=== PATIENT | male | born 1940 | race Hispanic/Latino ===

== ENCOUNTER 2018-05-23 10:19 | Emergency (ER) | payer OTHER, MEDICARE ==
[2018-05-23 11:23] LABS: BASOPHILS % (AUTO) 0.7 % (0.0-5.0); EOSINOPHILS % (AUTO) 3.6 % (0.0-8.0); LYMPHOCYTES % (AUTO) 23.5 % (21.0-51.0); MEAN CORPUSCULAR HEMOGLOBIN 31.3 pg (27.0-33.0); MEAN CORPUSCULAR HGB CONC 33.8 g/dL (32.0-36.0); MEAN CORPUSCULAR VOLUME 92.7 fL (79-99); MONOCYTES % (AUTO) 9.3 % (3.0-13.0); NEUTROPHILS % (AUTO) 62.9 % (40.0-77.0); NUCLEATED RED BLOOD CELLS 0.1 % (0.0-0.19); PLATELET COUNT (AUTO) 221 K/uL (130-400); RED BLOOD CELL COUNT(AUTO) 4.53 MIL/uL (4.50-6.20); RED CELL DISTRIBUTION WIDTH 13.1 % (11.0-15.5); WHITE BLOOD COUNT (AUTO) 5.9 K/uL (4.8-10.8)
[2018-05-23 11:24] LABS: CREATININE 0.7 mg/dL (0.5-1.5); POTASSIUM 3.7 mmol/L (3.5-5.1)
[2018-05-23 11:29] LABS: ALBUMIN 3.5 g/dL (3.5-5.0); BILIRUBIN,TOTAL 0.6 mg/dL (0.2-1.0); TOTAL PROTEIN, SERUM 6.9 g/dL (6.0-8.3)
[2018-05-23 12:02] LABS: INR 0.95 (0.85-1.15); PARTIAL THROMBOPLASTIN TIME 30.2 SEC (26.3-35.5)
== END 2018-05-23 12:36 | disposition home or self-care (01) ==
LOC: EDH 10:19
DX: I10 Essential (primary) hypertension (principal); R42 Dizziness and giddiness; R53.1 Weakness; Z90.49 Acquired absence of other specified parts of digestive tract; Z88.0 Allergy status to penicillin
CPT/HCPCS: 36415; 80053; 84484; 85025; 85610; 85730; 93005

== ENCOUNTER 2018-06-01 19:37 | Emergency (ER) | payer OTHER, MEDICARE ==
[2018-06-01] MEDS ORDERED: ONDANSETRON HCL 4 MG/2 ML VIAL ONE (20:50)
[2018-06-01] MEDS ORDERED: 0.9% SODIUM CHLORIDE 1000 ML IV BAG IV ONE (21:11)
[2018-06-01 21:43] LABS: CREATININE 0.6 mg/dL (0.5-1.5); POTASSIUM 4.5 mmol/L (3.5-5.1)
== END 2018-06-01 23:18 | disposition home or self-care (01) ==
LOC: EDH 19:37
DX: I10 Essential (primary) hypertension (principal); R11.2 Nausea with vomiting, unspecified; Z90.49 Acquired absence of other specified parts of digestive tract; Z88.0 Allergy status to penicillin
CPT/HCPCS: 36415; 70450; 80048; 84484; 93005; 96361; 96374; 99284; J2405; J7030

== ENCOUNTER → 2018-08-17 | Outpatient (CLI) | payer OTHER, MEDICARE ==
[2018-08-17 12:29] LABS: EOSINOPHILS % (AUTO) 2.6 % (0.0-8.0); HEMATOCRIT 44.6 % (42-54); LYMPHOCYTES % (AUTO) 26.4 % (21.0-51.0); MEAN CORPUSCULAR HEMOGLOBIN 30.9 pg (27.0-33.0); MEAN CORPUSCULAR HGB CONC 33.1 g/dL (32.0-36.0); MEAN CORPUSCULAR VOLUME 93.2 fL (79-99); PLATELET COUNT (AUTO) 249 K/uL (130-400); RED BLOOD CELL COUNT(AUTO) 4.79 MIL/uL (4.50-6.20); RED CELL DISTRIBUTION WIDTH 13.4 % (11.0-15.5)
[2018-08-17 12:55] LABS: CREATININE 0.8 mg/dL (0.5-1.5); POTASSIUM 3.5 mmol/L (3.5-5.1)
== END | disposition home or self-care (01) ==
LOC: LAB 12:10
PROVIDERS: ATTEND Internal Medicine Gastroenterology
DX: R93.2 Abnormal findings on diagnostic imaging of liver and biliary tract (principal)
CPT/HCPCS: 36415; 80048; 85025

== ENCOUNTER → 2018-08-18 | Outpatient (CLI) | payer OTHER, MEDICARE ==
[~2018-08-18] MED LIST: GADODIAMIDE 10 MMOL/20 ML VIAL IV ONE
== END | disposition home or self-care (01) ==
LOC: RAH 07:11
PROVIDERS: ATTEND Internal Medicine Gastroenterology
DX: N28.1 Cyst of kidney, acquired (principal)
CPT/HCPCS: 74183; A9579

== ENCOUNTER 2018-09-03 10:00 | Day surgery (SDC) | payer OTHER, MEDICARE ==
[~2018-09-03] VITALS: Ht 157.5 cm; Wt 80.3 kg
[2018-09-03] VITALS (20 sets, daily range): BP systolic 112–168; BP diastolic 50–90
[~2018-09-03 10:00] MED LIST changes: +CLON0.1T PO; +DULO40CA2 PO; -GADODIAMIDE 10 MMOL/20 ML VIAL IV ONE; +HYDR12.530 PO; +MAGN100T5 PO; +METO-391 PO; +RANI-643 PO; +SODIUM CHLORIDE 0.9% 1000ML 1,000 ML IV ONE
[2018-09-03] MEDS ORDERED: IOHEXOL-350 50ML VIAL IV ONE (12:22)
[2018-09-03] MEDS ORDERED: RANI150C4 PO (12:28)
[2018-09-03] MEDS ORDERED: DULO30CA52 PO (12:28)
[2018-09-03] MEDS ORDERED: CLON1PAT13 TD (12:28)
[2018-09-03] MEDS ORDERED: HYDR25TA PO (12:28)
[2018-09-03] MEDS ORDERED: DONE5TAB26 PO (12:30)
[2018-09-03] MEDS ORDERED: INDOMETHACIN 50 MG SUPP.RECT RC SCH (12:30)
[2018-09-03] MEDS ORDERED: PROPOFOL 1000 MG/100 ML 100 ML IV ONE (12:49)
[2018-09-03] MEDS ORDERED: LIDOCAINE HCL 2% 20ML ONE (12:49)
[2018-09-03] MEDS ORDERED: SUCCINYLCHOLINE CHLORIDE 20 MG/ML 10 ML VIAL ONE (12:49)
[2018-09-03] MEDS ORDERED: HYDRALAZINE HCL 20 MG/ML VIAL ONE (13:10)
[2018-09-03] MEDS ORDERED: GLUCAGON 1MG KIT 1 MG ML ONE (13:21)
--- NOTE | 2018-09-03 15:15 | NUR ---
REVIEWED DR. HEATH INSTRUCTIONS WITH PATIENT DAUGHTER, SHE VERBALIZED UNDERSTANDING AND AGREED TO COMPLY. PATIENT IN NO DISTRESS OR DISCOMFORT.
--- NOTE | 2018-09-03 15:30 | NUR ---
PATIENT ASSISTED TO SIT UP ON SIDE OF BED AND TO CHAIR. PATIENT STATES FEELING WELL IN NO DISTRESS.
--- NOTE | 2018-09-03 15:44 | NUR ---
PATIENT LEFT HOME IN NO DISTRESS. AAOX3
== END 2018-09-03 15:44 | disposition home or self-care (01) ==
LOC: ENDO 10:00 → DAH 10:00 → ENDO 15:44
PROVIDERS: ATTEND Internal Medicine
DX: K31.89 Other diseases of stomach and duodenum (principal); K83.9 Disease of biliary tract, unspecified; I10 Essential (primary) hypertension; F41.9 Anxiety disorder, unspecified; F32.9 Major depressive disorder, single episode, unspecified; J45.909 Unspecified asthma, uncomplicated; Z79.899 Other long term (current) drug therapy; Z98.890 Other specified postprocedural states; Z88.0 Allergy status to penicillin; Z90.49 Acquired absence of other specified parts of digestive tract; Z82.49 Family history of ischemic heart disease and other diseases of the circulatory system; Z82.3 Family history of stroke; Z83.3 Family history of diabetes mellitus
CPT/HCPCS: 43260; A4606; C1769; J0330; J0360; J1610; J2704; J3490; J7030; Q9967; 43235; 74330

== ENCOUNTER 2018-11-16 05:30 | Day surgery (SDC) | payer OTHER, MEDICARE ==
[~2018-11-16] VITALS: Ht 160 cm; Wt 78.5 kg
[~2018-11-16 05:30] MED LIST changes: -CLON0.1T PO; +CLON1PAT13 TD; +DONE5TAB26 PO; +DULO30CA52 PO; -DULO40CA2 PO; -HYDR12.530 PO; +HYDR25TA PO; -RANI-643 PO; +RANI150C4 PO; -SODIUM CHLORIDE 0.9% 1000ML 1,000 ML IV ONE
[2018-11-16] MEDS ORDERED: SODIUM CHLORIDE 0.9% 1000ML 1,000 ML IV ONE (05:44)
[2018-11-16 06:03] VITALS: BP 174/69
[2018-11-16 06:17] LABS: BASOPHILS % (AUTO) 0.8 % (0.0-5.0); EOSINOPHILS % (AUTO) 3.4 % (0.0-8.0); HEMATOCRIT 41.5 % (42-54); LYMPHOCYTES % (AUTO) 33.7 % (21.0-51.0); MEAN CORPUSCULAR HEMOGLOBIN 32.2 pg (27.0-33.0); MEAN CORPUSCULAR HGB CONC 34.5 g/dL (32.0-36.0); MEAN CORPUSCULAR VOLUME 93.4 fL (79-99); MONOCYTES % (AUTO) 10.6 % (3.0-13.0); NEUTROPHILS % (AUTO) 51.5 % (40.0-77.0); PLATELET COUNT (AUTO) 231 K/uL (130-400); RED BLOOD CELL COUNT(AUTO) 4.44 MIL/uL (4.50-6.20); RED CELL DISTRIBUTION WIDTH 12.9 % (11.0-15.5); WHITE BLOOD COUNT (AUTO) 6.1 K/uL (4.8-10.8)
[2018-11-16 06:30] LABS: INR 0.95 (0.85-1.15)
[2018-11-16] MEDS ORDERED: PROPOFOL 10 MG/ML 20ML VIAL IV ONE (07:40)
[2018-11-16] MEDS ORDERED: LIDOCAINE HCL 2% 20ML ONE (07:40)
[2018-11-16 07:55] VITALS: BP 111/43
[2018-11-16 08:02] VITALS: BP 103/44
[2018-11-16 08:07] VITALS: BP 131/56
[2018-11-16 08:12] VITALS: BP 145/89
[2018-11-16 08:17] VITALS: BP 147/67
== END 2018-11-16 08:33 | disposition home or self-care (01) ==
LOC: DAH 05:30 → ENDO 05:30
PROVIDERS: ATTEND Internal Medicine
DX: K83.8 Other specified diseases of biliary tract (principal); K86.9 Disease of pancreas, unspecified; F41.9 Anxiety disorder, unspecified; F32.9 Major depressive disorder, single episode, unspecified; I10 Essential (primary) hypertension; J45.909 Unspecified asthma, uncomplicated; Z79.899 Other long term (current) drug therapy; Z86.010 Personal history of colon polyps; Z88.0 Allergy status to penicillin; Z82.49 Family history of ischemic heart disease and other diseases of the circulatory system; Z83.3 Family history of diabetes mellitus; Z82.5 Family history of asthma and other chronic lower respiratory diseases
CPT/HCPCS: 36415; 43237; 85025; 85610; A4606; J2704; J3490; J7030

== ENCOUNTER 2022-07-31 15:29 | Emergency (ER) | payer OTHER, MEDICARE ==
[~2022-07-31] VITALS: Ht 152.4 cm; Wt 79.4 kg
[~2022-07-31 15:29] MED LIST changes: -DONE5TAB26 PO
[2022-07-31 16:31] VITALS: BP 185/82
[2022-07-31] MEDS ORDERED: NAPR500T6 PO (20:00)
[2022-07-31] MEDS ORDERED: CLIN-141 PO (20:00)
[2022-08-19] MEDS ORDERED: SERT-438 PO (23:50)
[2022-08-19] MEDS ORDERED: FURO20TA4 PO (23:50)
[2022-08-19] MEDS ORDERED: ATOR10TA69 PO (23:50)
[2022-08-19] MEDS ORDERED: APIX5TAB PO (23:50)
[2022-08-19] MEDS ORDERED: CLON1PAT4 TD (23:50)
[2022-08-19] MEDS ORDERED: DONE5TAB33 PO (23:50)
[2022-08-19] MEDS ORDERED: QUET25TA36 PO (23:50)
[2022-08-19] MEDS ORDERED: HYDR12.54 PO (23:50)
[2022-08-19] MEDS ORDERED: MEMA5TAB42 PO (23:50)
== END 2022-07-31 20:34 | disposition home or self-care (01) ==
LOC: EDSEX 15:29 → EDH 15:29
DX: M25.531 Pain in right wrist (principal); M79.89 Other specified soft tissue disorders; M19.90 Unspecified osteoarthritis, unspecified site; I48.91 Unspecified atrial fibrillation; F03.90 Unspecified dementia, unspecified severity, without behavioral disturbance, psychotic disturbance, mood disturbance, and anxiety; I10 Essential (primary) hypertension; R60.0 Localized edema; Z90.49 Acquired absence of other specified parts of digestive tract; Z88.0 Allergy status to penicillin; Z79.899 Other long term (current) drug therapy
CPT/HCPCS: 73100; 93971

== ENCOUNTER → 2024-09-21 | Outpatient (CLI) | payer OTHER, MEDICAID ==
[~2024-09-21] MED LIST changes: +APIX5TAB PO; +ATOR10TA69 PO; +CALC-1009 PO; +CLIN-141 PO; +CLON1PAT TD; -CLON1PAT13 TD; +DEXA4TAB PO; +DONE5TAB33 PO; -DULO30CA52 PO; +FURO20TA4 PO; +HYDR12.54 PO; -HYDR25TA PO; +HYDR25TA67 PO; +LOSA50TA64 PO; -MAGN100T5 PO; +MEMA5TAB16 PO; -METO-391 PO; +PANT40TA54 PO; -RANI150C4 PO
--- NOTE | 2024-09-22 14:06 | HMCIMG ---
Gastric Emptying Scan. EXAM: Nuclear Medicine Gastric Emptying Scan. INDICATION: Abdominal distension REFERENCE EXAMINATION:None. TECHNIQUE: 2.1 mCi of Tc99m sulfur colloid with egg whites, 2 slices of bread/jam, 4 ounces of water. FINDINGS: Transit of radiopharmaceutical from the stomach into the small bowel is noted during the period of the study. >70% retention is noted at 90 minute of the study. IMPRESSION: Scintigraphic findings suggest gastroparesis. /[place]
== END | disposition home or self-care (01) ==
LOC: RAH 07:10
PROVIDERS: ATTEND Internal Medicine Gastroenterology
DX: R14.0 Abdominal distension (gaseous) (principal); R10.13 Epigastric pain; R63.8 Other symptoms and signs concerning food and fluid intake
CPT/HCPCS: 78264; A9541